=== PATIENT | male | born 1965 | race Caucasian/White ===

== ENCOUNTER → 2024-06-21 | Outpatient (CLI) | payer MEDICAID ==
--- NOTE | 2024-06-21 13:10 | RADIOLOGY REPORT ---
ULTRASOUND SOFT TISSUE HEAD AND NECK CLINICAL INDICATION: nodule TECHNIQUE: Multiple real time sonographic images of the thyroid were obtained. FINDINGS: The right thyroid gland measures 4 cm. The left thyroid gland measures approximately 3 cm. The isthmus measures 1.12 cm. ACR TIRADS TI-Rads 3 nodules measuring up to 1.34x 2 x 2 cm right lower lobe nodule. Followup in 1 year. IMPRESSION: TI-Rads 3 nodules measuring up to 1.34x 2 x 2 cm right lower lobe nodule. Followup in 1 year. [employer] TI-RADS Categories and Recommendations (2017): TR1: 0 points, Benign, No FNA TR2: 2 points, Not suspicious, No FNA TR3: 3 points, Mildly suspicious, FNA if > or = 2.5 cm, Follow if > or = 1.5 cm TR4: 4-6 points, Moderately Suspicious, FNA if > or = 1.5 cm, Follow if > or = 1.0 cm TR5: 7+ points, Highly Suspicious, FNA if > or = 1.0 cm, Follow if > or = 0.5 cm Follow-up ultrasound guidelines: TR5: yearly for 5 years, if no growth or change in TI-RADS level TR4: at 1, 2, 3 and 5 years, if no growth or change in TI-RADS level TR3: at 1, 3 and 5 years, if no growth or change in TI-RADS level If increased but below threshold for FNA, repeat in one year. Source: ACR Thyroid Imaging, Reporting and Data System (TI-RADS): White Paper of the A[employer] TI-RADS Committee. Lennox et al., J Am Patricio Radiol 2017;14:587-595.
== END | disposition home or self-care (01) ==
LOC: RAD 08:39
PROVIDERS: ATTEND Internal Medicine
DX: E04.2 Nontoxic multinodular goiter (principal)
CPT/HCPCS: 76536

== ENCOUNTER 2025-01-18 08:39 | Outpatient (CLI) | payer MEDICAID ==
[2025-01-18 09:11] LABS: MEAN PLATELET VOLUME 7.4 FL (7.4-10.4); RED CELL DISTRIBUTION WIDTH 22.1 % (11.5-14.5)
[2025-01-18 09:22] LABS: APTT 31 SECONDS (22-32); INR 1.0 INR
[2025-01-18 09:24] LABS: CHOL/HDL RATIO 3.2 (0.00-4.99); CREATININE 4.13 MG/DL (0.60-1.10); LDL CHOLESTEROL 42 MG/DL (50-100); TOTAL CARBON DIOXIDE 32.3 MMOL/L (24-32); eGFR 15 ML/MIN
[2025-01-21] MEDS ORDERED: INSU100I29 SQ (13:01)
[2025-01-21] MEDS ORDERED: DOCU-391 PO (13:01)
[2025-01-21] MEDS ORDERED: PREG75CA76 PO (13:01)
[2025-01-21] MEDS ORDERED: SERT-434 PO (13:01)
[2025-01-21] MEDS ORDERED: ATOR-2 PO (13:01)
[2025-01-21] MEDS ORDERED: SEVE800T28 PO (13:01)
[2025-01-21] MEDS ORDERED: TRAZ-251 PO (13:01)
[2025-01-21] MEDS ORDERED: LINA5TAB4 PO (13:01)
[2025-01-21] MEDS ORDERED: AMIT25TA22 PO (13:01)
[2025-01-21] MEDS ORDERED: TAMS-55 (13:01)
[2025-01-21] MEDS ORDERED: ZOLP5TAB18 PO (13:01)
[2025-01-21] MEDS ORDERED: APIX5TAB3 PO (13:01)
[2025-01-21] MEDS ORDERED: FURO80TA3 PO (13:01)
[2025-01-21] MEDS ORDERED: METH-797 PO (13:01)
[2025-01-21] MEDS ORDERED: ERGO500093 PO (13:01)
[2025-01-21] MEDS ORDERED: ALBU10.7 (13:01)
[2025-01-21] MEDS ORDERED: BUSP10TA3 PO (13:01)
[2025-01-21] MEDS ORDERED: DILT240T12 PO (13:01)
[2025-01-21] MEDS ORDERED: ASPI-1265 PO (13:03)
[2025-01-21] MEDS ORDERED: SODI10PO (13:03)
== END 2025-01-18 23:59 | disposition home or self-care (01) ==
LOC: LAB 08:39 → EDSTATUS 01-22 14:00
PROVIDERS: ATTEND Student in an Organized Health Care Education/Training Program
DX: I48.91 Unspecified atrial fibrillation (principal); Z53.8 Procedure and treatment not carried out for other reasons; I10 Essential (primary) hypertension; I25.810 Atherosclerosis of coronary artery bypass graft(s) without angina pectoris; E78.5 Hyperlipidemia, unspecified
CPT/HCPCS: 36415; 80048; 80061; 85025; 85610; 85730